=== PATIENT | male | born 1955 | race Caucasian/White ===

== ENCOUNTER 2018-06-28 11:00 | Emergency (ER) | payer SELFPAY ==
[~2018-06-28] VITALS: Ht 165.1 cm; Wt 74.8 kg
[2018-06-28 11:01] VITALS: BP 174/81
[2018-06-28 16:12] VITALS: BP 174/81
== END 2018-06-28 16:10 | disposition home or self-care (01) ==
LOC: MED 11:00
DX: S00.81XA Abrasion of other part of head, initial encounter (principal); Y04.8XXA Assault by other bodily force, initial encounter; Y93.89 Activity, other specified; Y92.89 Other specified places as the place of occurrence of the external cause; Y99.8 Other external cause status
CPT/HCPCS: 70450; 70486; 99284